=== PATIENT | male | born 1970 | race Caucasian/White ===

== ENCOUNTER 2019-01-13 07:53 | Inpatient (IN) | payer SELFPAY ==
[2019-01-13] VITALS (8 sets, daily range): BP systolic 103–145; BP diastolic 50–89
[~2019-01-13] VITALS: Ht 187.9 cm; Wt 135.6 kg
[2019-01-13 08:11] LABS: BASO % 0.2 % (0.0-1.0); EOS # 0.3 10*3/uL (0.0-0.4); EOS % 2.2 % (1.0-4.0); HEMATOCRIT 41.5 % (42.0-52.0); HEMOGLOBIN 14.1 g/dl (14.0-18.0); LYMPH # 2.4 10*3/uL (1.3-4.4); LYMPH % 18.9 % (27.0-41.0); MEAN CELL VOLUME 89.1 fl (80.0-94.0); MEAN CORPUSCULAR HGB 30.3 pg (27.0-31.0); MEAN PLATELET VOLUME 9.6 fl (9.6-12.3); MONO # 0.9 10*3/uL (0.1-1.0); MONO % 7.4 % (3.0-9.0); NEUT # 8.8 10*3/uL (2.3-7.9); NEUT % 70.9 % (47.0-73.0); PLATELET COUNT AUTOMATED 223 10*3/uL (130-400); RED BLOOD COUNT 4.66 10*6/uL (4.50-5.90); RED CELL DISTRI WIDTH 12.5 % (0-14.5); WHITE BLOOD COUNT 12.5 10*3/uL (4.8-10.8)
[2019-01-13 08:28] LABS: ALBUMIN 3.7 gm/dl (3.1-4.5); ALKALINE PHOSPHATASE 71 U/L (45-117); BUN 25 mg/dl (7-24); CHLORIDE 101 mmol/L (98-107); CREATININE 0.85 mg/dL (0.70-1.30); POTASSIUM 4.3 mmol/L (3.5-5.1); SGOT/AST 29 IU/L (3-35); SGPT/ALT 52 U/L (12-78); SODIUM 136 mmol/L (136-145); TOTAL PROTEIN 8.2 gm/dL (6.4-8.2)
[2019-01-13 08:30] LABS: TROPONIN I < 0.015 ng/ml (<0.045)
[2019-01-13] MEDS ORDERED: GLUCOTROL10 MG PO (09:40)
[2019-01-13] MEDS ORDERED: GLUCOPHAGE1000 MG PO (09:40)
[2019-01-13] MEDS ORDERED: CARAFATE1 G1 PO (09:41)
[2019-01-13] MEDS ORDERED: NEXIUM40 MG PO (09:41)
[2019-01-13] MEDS ORDERED: MOBIC15 MG PO (09:41)
[2019-01-14] VITALS: BP 124/80
[2019-01-14 06:43] LABS: BASO % 0.2 % (0.0-1.0); EOS # 0.2 10*3/uL (0.0-0.4); EOS % 2.6 % (1.0-4.0); HEMATOCRIT 39.8 % (42.0-52.0); LYMPH # 2.2 10*3/uL (1.3-4.4); LYMPH % 23.8 % (27.0-41.0); MEAN CELL VOLUME 91.3 fl (80.0-94.0); MEAN CORPUSCULAR HGB 29.8 pg (27.0-31.0); MEAN CORPUSCULAR HGB CONC 32.7 g/dl (33.0-37.0); MEAN PLATELET VOLUME 9.8 fl (9.6-12.3); MONO # 0.7 10*3/uL (0.1-1.0); MONO % 7.7 % (3.0-9.0); NEUT # 6.1 10*3/uL (2.3-7.9); NEUT % 65.2 % (47.0-73.0); PLATELET COUNT AUTOMATED 219 10*3/uL (130-400); RED BLOOD COUNT 4.36 10*6/uL (4.50-5.90); RED CELL DISTRI WIDTH 12.4 % (0-14.5); WHITE BLOOD COUNT 9.3 10*3/uL (4.8-10.8)
[2019-01-14 07:20] LABS: ALBUMIN 3.2 gm/dl (3.1-4.5); CHLORIDE 102 mmol/L (98-107); HDL CHOLESTEROL 27 mg/dl (40-60); POTASSIUM 4.2 mmol/L (3.5-5.1); SODIUM 138 mmol/L (136-145)
[2019-01-14 07:26] LABS: ALKALINE PHOSPHATASE 62 U/L (45-117); CHOLESTEROL 112 mg/dL (<200); CREATININE 0.72 mg/dL (0.70-1.30); LDL CHOLESTEROL 53 mg/dL (9-159); SGOT/AST 20 IU/L (3-35); SGPT/ALT 40 U/L (12-78); TOTAL PROTEIN 7.1 gm/dL (6.4-8.2); TRIGLYCERIDES 160 mg/dl (<150); VLDL CHOLESTEROL 32 mg/dL (6-40)
[2019-01-14 07:27] LABS: BUN 14 mg/dl (7-24)
[2019-01-14 08:00] VITALS: BP 120/78
[2019-01-14 08:23] LABS: VITAMIN D, 25-HYDROXY 35.7 ng/mL (30-100)
[2019-01-14 12:00] VITALS: BP 127/77
[2019-01-14 16:00] VITALS: BP 130/62
[2019-01-14] MEDS ORDERED: ASPIRIN CHEWABL81 M1 PO (17:20)
[2019-01-14] MEDS ORDERED: ATORVASTATIN CA40 M1 PO (17:20)
[2019-01-14 20:00] VITALS: BP 129/97
== END 2019-01-14 21:15 | disposition short-term general hospital (02) | DRG 395 ==
LOC: ED 07:53 → EDHOLD 08:51 → 5E 09:15
PROVIDERS: Emergency Medicine; Student in an Organized Health Care Education/Training Program; ADMIT Internal Medicine
PROC: 4A02XM4 Measurement of Cardiac Total Activity, External Approach (ICD-10-PCS; principal; 2019-01-14)
DX: K52.1 Toxic gastroenteritis and colitis (principal); R07.9 Chest pain, unspecified; E11.9 Type 2 diabetes mellitus without complications; K21.9 Gastro-esophageal reflux disease without esophagitis; E11.65 Type 2 diabetes mellitus with hyperglycemia; D72.825 Bandemia; T38.3X5A Adverse effect of insulin and oral hypoglycemic [antidiabetic] drugs, initial encounter; K44.9 Diaphragmatic hernia without obstruction or gangrene; E66.9 Obesity, unspecified; Z90.49 Acquired absence of other specified parts of digestive tract; Z79.84 Long term (current) use of oral hypoglycemic drugs; Z82.49 Family history of ischemic heart disease and other diseases of the circulatory system; Z80.9 Family history of malignant neoplasm, unspecified; Z79.899 Other long term (current) drug therapy; Y92.89 Other specified places as the place of occurrence of the external cause; Z68.38 Body mass index [BMI] 38.0-38.9, adult